=== PATIENT | male | born 1995 | race Caucasian/White ===

== ENCOUNTER 2017-04-08 12:23 | Emergency (ER) | payer MEDICAID ==
[~2017-04-08] VITALS: Ht 167.6 cm; Wt 62.5 kg
[2017-04-08 12:26] VITALS: Ht 167.6 cm; Wt 62.5 kg
[2017-04-08] MEDS ORDERED: ONDANSETRON 4 MG INJ IV STA (12:49)
[2017-04-08] MEDS ORDERED: SOD CHLORIDE 0.9% 1,000 ML IV STA (12:49)
[2017-04-08] MEDS ORDERED: FAMOTIDINE 20 MG INJ IV STA (12:49)
--- NOTE | 2017-04-08 12:51 | ERD ---
ER Documentation Chief Complaint Date/Time DATE: 04/08/17 TIME: 12:50 Chief Complaint abdominal pain and vomiting x 1 week HPI 21-year-old male comes emergency department with abdominal pain 1 week as well as vomiting and diarrhea. Patient states that he has a history of abusing crystal meth and he had stopped using about a week ago, he complains of epigastric abdominal pain and reports vomiting and diarrhea each time he tries to eat or drink anything. He states that he is currently homeless and has been [facility]. Vomiting has been nonbloody, he also denies any blood in his stools or dark or tarry stools. No recent travel. He denies any fever or chills associated with this. ROS All systems reviewed and are negative except as per history of present illness. Medications Home Meds Active Scripts Azithromycin* (Zithromax*) 500 Mg Tablet, 500 MG PO DAILY for 3 Days, TAB Prov:ZULMA BARRY PA-C 04/08/17 Ondansetron (Ondansetron Odt) 4 Mg Tab.rapdis, 4 MG PO Q6H Y for NAUSEA AND/OR VOMITING, #10 TAB Prov:ZULMA BARRY PA-C 04/08/17 Ranitidine Hcl* (Zantac*) 150 Mg Tablet, 150 MG PO BID Y for EPIGASTRIC PAIN, # 30 TAB Prov:ZULMA BARRY PA-C 04/08/17 Allergies Allergies: Coded Allergies: No Known Allergy (Unverified , 12/21/12) PMhx/Soc Medical and Surgical Hx: pt denies Medical Hx, pt denies Surgical Hx Hx Miscellaneous Medical Probl: Yes (ANEMIA) Hx Alcohol Use: No Hx Substance Use: No Hx Tobacco Use: No Physical Exam Vitals Vital Signs Date Time Temp Pulse Resp B/P Pulse Ox O2 Delivery O2 Flow Rate FiO2 04/08/17 14:35 98 98 Room Air 04/08/17 12:26 97.8 106 18 144/87 99 Physical Exam General: Well-developed, well-nourished. The patient appears in no acute distress. HEENT: Head is normocephalic, atraumatic. No scleral icterus. Neck: Supple. Nontender. Lungs: Clear to auscultation. Normal air movement. Heart: Regular rate and rhythm. S1 and S2 are normal. No murmurs, gallops, or rubs. Abdomen: Soft, tender in the epigastric region nondistended. Bowel sounds are normoactive. Negative Sharpe sign, no McBurney's tenderness. There are no masses. Extremities: No clubbing or cyanosis. Normal pulses. Moving extremities x 4. No weakness. Neurologic: Alert and oriented 3. No focal deficits. Skin: Normal turgor. No rash or lesions. Result Diagram: 04/08/17 1315 04/08/17 1315 Results 24 hrs Laboratory Tests Test 04/08/17 13:15 White Blood Count 8.910^3/ul Red Blood Count 6.5910^6/ul Hemoglobin 19.0g/dl Hematocrit 58.3% Mean Corpuscular Volume 88.5fl Mean Corpuscular Hemoglobin 28.8pg Mean Corpuscular Hemoglobin Concent 32.6g/dl Red Cell Distribution Width 13.9% Platelet Count 96899^3/UL Mean Platelet Volume 9.7fl Neutrophils % 64.0% Lymphocytes % 17.8% Monocytes % 14.9% Eosinophils % 2.9% Basophils % 0.2% Nucleated Red Blood Cells % 0.0/100WBC Neutrophils # 5.710^3/ul Lymphocytes # 1.610^3/ul Monocytes # 1.310^3/ul Eosinophils # 0.310^3/ul Basophils # 0.010^3/ul Nucleated Red Blood Cells # 0.010^3/ul Urine Color YELLOW Urine Clarity CLEAR Urine pH 6.0 Urine Specific Cordell 1.025 Urine Ketones NEGATIVE Urine Nitrite NEGATIVE Urine Bilirubin NEGATIVE Urine Urobilinogen 0.2 E.U./dL Urine Leukocyte Esterase NEGATIVE Urine Microscopic RBC NONE SEEN/HPF Urine Microscopic WBC 0-2/HPF Urine Squamous Epithelial Cells FEW Urine Mucus MODERATE Urine Hemoglobin NEGATIVE Urine Glucose NEGATIVE% Urine Total Protein 1+ Sodium Level 138mmol/L Potassium Level 3.6mmol/L Chloride Level 102mmol/L Carbon Dioxide Level 25mmol/L Anion Gap 15 Blood Urea Nitrogen 14mg/dl Creatinine 0.91mg/dl Glucose Level 97mg/dl Calcium Level 9.1mg/dl Total Bilirubin 1.0mg/dl Direct Bilirubin 0.00mg/dl Indirect Bilirubin 1.0mg/dl Aspartate Amino Transf (AST/SGOT) 13IU/L Alanine Aminotransferase (ALT/SGPT) 36IU/L Alkaline Phosphatase 86IU/L Total Protein 7.9g/dl Albumin 4.6g/dl Globulin 3.30g/dl Albumin/Globulin Ratio 1.39 Lipase < 10U/L Current Medications Medications (Trade) Dose Ordered Sig/Dania Route PRN Reason Start Time Stop Time Status Last Admin Dose Admin Sodium Chloride (NS) 1,000 ml @ 1,000 mls/hr Q1H STAT IV 04/08/17 12:49 04/08/17 13:48 DC 04/08/17 13:29 Ondansetron HCl (Zofran Inj) 4 mg ONCE STAT IV 04/08/17 12:49 04/08/17 12:50 DC 04/08/17 13:26 Famotidine (Pepcid Iv) 20 mg ONCE STAT IV 04/08/17 12:49 04/08/17 12:50 DC 04/08/17 13:26 Pantoprazole (Protonix Iv) 40 mg ONCE ONCE IV 04/08/17 13:00 04/08/17 13:01 DC 04/08/17 13:26 Procedures/MDM ED course: Patient had an IV line established, blood and urine were obtained. Patient was given Zofran 4 mg, Protonix 40 mg IV and Pepcid 20 mg IV. Additionally he received 1 L normal saline bolus. MDM: 21-year-old male comes in with a history of abdominal pain, vomiting diarrhea 1 week. Patient was given fluid bolus, Pepcid, Protonix and Zofran for symptoms. Serial abdominal examinations were done here and patient reports symptomatic improvement. He is able to tolerate by mouth. His workup included labs, there is no evidence of leukocytosis, no anemia no evidence of a upper GI bleed. He does have a history of being a transient at this time, and given his history of vomiting and diarrhea for 1 week patient will be treated for symptoms. No evidence of pancreatitis, hepatitis, urinary tract infection, bowel obstruction, diverticulitis. Other differential diagnoses are considered however there is no evidence of an acute surgical abdominal process. He is well -appearing, tolerate by mouth and will be discharged home with Zofran, Zithromax and ranitidine. Departure Diagnosis: Primary Impression: Abdominal pain Additional Impression: Vomiting and diarrhea Condition: ZULMA Giles PA-C April 08, 2017 12:51
[2017-04-08] MEDS ORDERED: PANTOPRAZOLE 40 MG INJ IV ONE (13:00)
[2017-04-08 13:41] LABS: ADD SCAN DIFF NO
[2017-04-08 13:42] LABS: BASOPHILS % 0.2 % (0.0-2.0); EOSINOPHILS # 0.3 10^3/ul (0.0-0.5); EOSINOPHILS % 2.9 % (0.0-7.0); HEMATOCRIT 58.3 % (42.0-52.0); LYMPHOCYTES # 1.6 10^3/ul (0.8-2.9); LYMPHOCYTES % 17.8 % (15.0-51.0); MEAN CORPUSCULAR HEMOGLOBIN 28.8 pg (29.0-33.0); MEAN CORPUSCULAR HGB CONC 32.6 g/dl (32.0-37.0); MEAN CORPUSCULAR VOLUME 88.5 fl (82.0-101.0); MEAN PLATELET VOLUME 9.7 fl (7.4-10.4); MONOCYTE # 1.3 10^3/ul (0.3-0.9); MONOCYTES % 14.9 % (0.0-11.0); NEUTROPHIL # 5.7 10^3/ul (1.6-7.5); PLATELET COUNT 303 10^3/UL (140-415); RED BLOOD COUNT 6.59 10^6/ul (4.70-6.10); RED CELL DISTRIBUTION WIDTH 13.9 % (11.5-14.5); WHITE BLOOD COUNT 8.9 10^3/ul (4.8-10.8)
[2017-04-08 13:47] LABS: ADD UMIC YES; URINE BILIRUBIN (Dip) NEGATIVE (NEGATIVE); URINE BLOOD (Dip) NEGATIVE (NEGATIVE); URINE COLOR YELLOW (YELLOW); URINE GLUCOSE (Dip) NEGATIVE (NEGATIVE); URINE KETONES (Dip) NEGATIVE (NEGATIVE); URINE LEUKOCYTE ESTERASE (Dip) NEGATIVE (NEGATIVE); URINE NITRITE (Dip) NEGATIVE (NEGATIVE); URINE TOTAL PROTEIN (Dip) 1+ (NEGATIVE); URINE UROBILINOGEN (Dip) 0.2 E.U./dL (0.1-1.0)
[2017-04-08 14:01] LABS: ALANINE AMINOTRANSFERASE 36 IU/L (13-69); ALBUMIN 4.6 g/dl (3.3-4.9); ALBUMIN/GLOBULIN RATIO 1.39; ALKALINE PHOSPHATASE 86 IU/L (42-121); ANION GAP 15 (8-16); ASPARTATE AMINO TRANSFERASE 13 IU/L (15-46); BLOOD UREA NITROGEN 14 mg/dl (7-20); CALCIUM 9.1 mg/dl (8.4-10.2); CARBON DIOXIDE 25 mmol/L (21-31); CHLORIDE 102 mmol/L (97-110); CREATININE 0.91 mg/dl (0.61-1.24); GLUCOSE 97 mg/dl (70-220); POTASSIUM 3.6 mmol/L (3.5-5.1); SODIUM 138 mmol/L (135-144); TOTAL PROTEIN 7.9 g/dl (6.1-8.1)
[2017-04-08 14:07] LABS: MUCUS,URINE MODERATE; SQUAMOUS EPITHELIAL CELL,UR FEW; URINE RBCS NONE SEEN /HPF (0)
[2017-04-08] MEDS ORDERED: RANI150T9 PO (14:11)
[2017-04-08] MEDS ORDERED: ONDA4TAB14 PO (14:11)
[2017-04-08] MEDS ORDERED: AZIT500T3 PO (14:17)
[2017-04-08 14:35] VITALS: PULSE 98
== END 2017-04-08 14:37 | disposition home or self-care (01) ==
LOC: FTE 12:23
DX: R10.13 Epigastric pain (principal); R11.10 Vomiting, unspecified; R19.7 Diarrhea, unspecified
CPT/HCPCS: 36415; 80053; 81001; 83690; 85025; 96374; 96375; C9113; J2405; J7030; Z7502; Z7610

== ENCOUNTER 2018-06-09 01:42 | Emergency (ER) | END 2018-06-09 05:54 | disposition home or self-care (01) ==